=== PATIENT | female | born 2000 | race Caucasian/White ===

== ENCOUNTER 2020-12-27 12:13 | Observation (INO) ==
[2020-12-27 13:38] LABS: Basophils % 0.6 %; Eosinophils % 0.2 %; Hematocrit 37.8 % (35.3-44.9); Immature Granulocytes % 0.6 % (0-4); Immature Platelets 2.1 % (1.1-6.1); Lymphocytes # 0.5 K/mcL (0.6-4.6); Lymphocytes % 9.1 %; Mean Corpuscular HGB Conc 34.4 g/dL (31.6-35.5); Mean Corpuscular Hemoglobin 28.3 pg (28.0-33.3); Mean Corpuscular Volume 82.4 fL (83.0-100.0); Mean Platelet Volume 9.4 fL (9.4-12.4); Monocytes # 0.2 K/mcL (0.0-1.3); Monocytes % 4.6 %; Neutrophils # 4.5 K/mcL (1.6-8.9); Platelet Count 125 K/mcL (140-400); Red Blood Count 4.59 M/mcL (3.82-4.97); Red Cell Distribution Width 12.2 % (11.5-14.5); Segmented Neutrophils % 84.9 %; White Blood Count 5.3 K/mcL (4.3-11.1)
[2020-12-27] MEDS ORDERED: Morphine Sulfate 2 MG/ML SYRINGE IVP STA ×2 (13:41→15:43)
[2020-12-27] MEDS ORDERED: Isovue-370 500 ML BOTTLE IVP ONE (13:41)
[2020-12-27] MEDS ORDERED: 0.9 % Sodium Chloride 1,000 ML IVC ONE (13:44)
[2020-12-27 13:48] LABS: Alanine Aminotransferase 41 Units/L (7-52); Albumin 3.8 g/dL (3.5-5.7); Albumin/Globulin Ratio 1.2 (1.1-2.2); Alkaline Phosphatase 43 Units/L (34-104); Aspartate Amino Transferase 39 Units/L (13-39); BUN/Creatinine Ratio 14 (6-26); Bilirubin,Direct 0.3 mg/dL (0.0-0.2); Bilirubin,Indirect 0.6 mg/dL (0.0-1.0); Bilirubin,Total 0.9 mg/dL (0.3-1.0); Blood Urea Nitrogen 11 mg/dL (6-20); Calcium 8.7 mg/dL (8.6-10.3); Carbon Dioxide 18 mEq/L (23-29); Chloride 108 mEq/L (98-107); Globulin 3.1 g/dL (2.4-3.5); Glucose 121 mg/dL (70-105); Lipase 49 Units/L (11-82); Osmolality,Calculated 285 (280-300); Potassium 3.6 mEq/L (3.5-5.1); Sodium 137 mEq/L (136-145); Total Protein 6.9 g/dL (6.4-8.9); eGFR For African Americans > 60 (> 60); eGFR For Non-African Americans > 60 (> 60)
[2020-12-27] MEDS ORDERED: Ondansetron 4 MG/2 ML VIAL IM ONE (14:37)
[2020-12-27] MEDS ORDERED: Metoclopramide 10 MG/2 ML VIAL IVP ONE (15:42)
[2020-12-27] MEDS ORDERED: 0.9 % Sodium Chloride 500 ML IVC STA (15:43)
[2020-12-27 15:49] LABS: Bacteria,Urine Few per hpf (None-Few); Bilirubin,Urine Negative (Negative); Blood,Urine Trace (Negative); Clarity,Urine Clear (Clear); Color,Urine Yellow (Yellow); Glucose,Urine (UA) 30 mg/dL (Normal); Ketones,Urine 10 mg/dL (Negative); Leukocyte Esterase,Urine Negative (Negative); Mucus,Urine Few per lpf (None-Few); Nitrite,Urine Negative (Negative); PH,Urine 6.5 pH Units (5.0-8.0); Protein,Urine 100 mg/dL (Neg-Trace); Specific Gravity,Urine > 1.030 (1.010-1.025); Squamous Epithelial Cell,Urine Few per hpf (None-Few); Urobilinogen,Urine >=8.0 mg/dL (Normal)
[2020-12-27] MEDS ORDERED: 0.9 % Sodium Chloride 1,000 ML IVC SCH (20:53)
[2020-12-27] MEDS ORDERED: *HR* OxyCODONE/APAP 5/325 TABLET PO PRN (20:53)
[2020-12-27] MEDS ORDERED: Ondansetron 4 MG/2 ML VIAL IVP PRN (20:53)
[2020-12-28] MEDS ORDERED: Acetaminophen IV 1,000 MG/100 ML BAG IVPB ONE ×2 (00:32→00:39)
[2020-12-28] MEDS ORDERED: Famotidine 20 MG/2 ML VIAL ONE (00:33)
[2020-12-28] MEDS ORDERED: Famotidine 20 MG/2 ML VIAL IVP ONE (00:39)
[2020-12-28] MEDS ORDERED: Ondansetron 4 MG/2 ML VIAL IVP PRN ×2 (01:28→02:44)
[2020-12-28] MEDS ORDERED: *HR* HYDROmorphone PF 0.5 MG/0.5 ML SYRINGE IVP PRN ×2 (01:28→02:44)
[2020-12-28] MEDS ORDERED: Ondansetron 4 MG/2 ML VIAL ONE (01:36)
[2020-12-28] MEDS ORDERED: Lidocaine -MPF 2% 2 ML VIAL ONE ×2 (01:36→01:38)
[2020-12-28] MEDS ORDERED: *HR* Propofol 200 MG/20 ML VIAL IVP ONE (01:36)
[2020-12-28] MEDS ORDERED: *HR* FentaNYL (PF) 100 MCG/2 ML VIAL ONE (01:36)
[2020-12-28] MEDS ORDERED: *HR* Midazolam HCl 2 MG/2 ML VIAL ONE (01:36)
[2020-12-28] MEDS ORDERED: Lidocaine HCL 4 ML Topical Solution (Laryng-O-Jet Kit Sterile Pak) TP ONE (01:36)
[2020-12-28] MEDS ORDERED: *HR* Succinylcholine 200 MG/10 ML VIAL IVP ONE (01:36)
[2020-12-28] MEDS ORDERED: CefOXitin 2,000 MG VIAL ONE (01:58)
[2020-12-28] MEDS ORDERED: Sugammadex Sodium 200 MG/2 ML VIAL IV ONE (02:32)
[2020-12-28] MEDS ORDERED: *HR* OxyCODONE/APAP 5/325 TABLET PO PRN (02:44)
[2020-12-28] MEDS: 0.9 % Sodium Chloride 1,000 ML IVC SCH ×2 (03:49→15:33)
[2020-12-28] MEDS: Acetaminophen 325 MG TABLET PO PRN ×2 (09:30→15:32)
[2020-12-28] MEDS ORDERED: cefOXitin 2,000 MG in Water for inj. (sterile) 20 ML IVP SCH ×2 (10:00)
[2020-12-28] MEDS: Piperacillin/Tazobactam 3.375 GM in 0.9 % Sodium Chloride Mini Bag 100 ML IVPB SCH ×2 (11:03→15:35)
[2020-12-28 11:05] LABS: Red Blood Count 4.19 M/mcL (3.82-4.97); Red Cell Distribution Width 12.3 % (11.5-14.5)
[2020-12-28 11:07] LABS: Hematocrit 35.1 % (35.3-44.9); Hemoglobin 11.9 g/dL (11.5-15.4); Immature Platelets 2.3 % (1.1-6.1); Mean Corpuscular HGB Conc 33.9 g/dL (31.6-35.5); Mean Corpuscular Hemoglobin 28.4 pg (28.0-33.3); Mean Corpuscular Volume 83.8 fL (83.0-100.0); Mean Platelet Volume 9.3 fL (9.4-12.4); White Blood Count 5.8 K/mcL (4.3-11.1)
[2020-12-28 11:24] LABS: Alanine Aminotransferase 36 Units/L (7-52); Albumin 3.5 g/dL (3.5-5.7); Albumin/Globulin Ratio 1.2 (1.1-2.2); Alkaline Phosphatase 35 Units/L (34-104); Aspartate Amino Transferase 30 Units/L (13-39); BUN/Creatinine Ratio 15 (6-26); Bilirubin,Total 1.1 mg/dL (0.3-1.0); Blood Urea Nitrogen 10 mg/dL (6-20); Calcium 8.4 mg/dL (8.6-10.3); Carbon Dioxide 18 mEq/L (23-29); Chloride 108 mEq/L (98-107); Globulin 2.9 g/dL (2.4-3.5); Glucose 138 mg/dL (70-105); Osmolality,Calculated 279 (280-300); Potassium 3.9 mEq/L (3.5-5.1); Sodium 134 mEq/L (136-145); Total Protein 6.4 g/dL (6.4-8.9); eGFR For African Americans > 60 (> 60); eGFR For Non-African Americans > 60 (> 60)
[2020-12-28] MEDS: Ondansetron 4 MG/2 ML VIAL IVP PRN ×2 (16:16→22:29)
[2020-12-28] MEDS ORDERED: Morphine Sulfate 2 MG/ML SYRINGE IVP ONE (23:03)
[2020-12-29] MEDS: Piperacillin/Tazobactam 3.375 GM in 0.9 % Sodium Chloride Mini Bag 100 ML IVPB SCH ×2 (00:08→09:13)
[2020-12-29] MEDS: Ondansetron 4 MG/2 ML VIAL IVP PRN (04:52)
[2020-12-29] MEDS: 0.9 % Sodium Chloride 1,000 ML IVC SCH (05:45)
[2020-12-29] MEDS ORDERED: Ibuprofen 800 MG TABLET PO ONE (08:34)
[2020-12-29 08:40] VITALS: BP 119/82; PULSE 94; TEMP 99.6; O2SAT 96
[2020-12-29] MEDS ORDERED: FLUoxetine 20 MG CAPSULE PO SCH (09:00)
== END 2020-12-29 14:02 | disposition home or self-care (01) ==
LOC: 3ANU 12:13 → EMEROOARM 12:13 → 3ANU 20:43
PROVIDERS: ADMIT Surgery; ATTEND Surgery